=== PATIENT | female | born 1970 | race Caucasian/White ===

== ENCOUNTER → 2017-09-01 | Outpatient (CLI) | payer OTHER | LOC: FIMAGING 12:51 | PROVIDERS: ATTEND Internal Medicine Hematology & Oncology | DX: Z15.02 Genetic susceptibility to malignant neoplasm of ovary (principal); N83.201 Unspecified ovarian cyst, right side ==

== ENCOUNTER → 2018-09-12 | Outpatient (CLI) | payer OTHER | LOC: BMCIMAGING 12:47 | PROVIDERS: ATTEND Internal Medicine Hematology & Oncology | DX: D25.9 Leiomyoma of uterus, unspecified (principal); Z97.5 Presence of (intrauterine) contraceptive device; Z85.3 Personal history of malignant neoplasm of breast ==